=== PATIENT | female | born 1950 | race Asian ===

== ENCOUNTER 2019-04-02 07:51 | Inpatient (IN) | payer OTHER ==
[2019-04-02 08:04] VITALS: BMI 23.8
--- NOTE | 2019-04-02 08:16 | PDOC ---
History of Present Illness - General Chief Complaint: Chest Pain Stated Complaint: CHEST PAIN Time Seen by Provider: 04/02/19 08:11 History Source: Patient Exam Limitations: No Limitations - History of Present Illness Initial Comments: Pt is a 68 yo F, with PMH of HTN, HLD, and cardiac cath (non-ischemic, no stents ), who is presenting with intermittent chest pain at rest since yesterday. Pt states starting yesterday afternoon while cooking, she experienced pressure- like chest discomfort. The pain has reoccurred throughout the day and night, and is active on presentation. The pain lasts about 10-15 minutes, and is associated with diaphoresis, nausea, and L arm tingling. Pt states this is similar to the chest pain she had in the past. Pt did not take any NG at home or analgesics. Pt denies any recent fevers/chills, headache, vision changes, syncope, palpitations, SOB, vomiting, abdominal pain, urinary symptoms, diarrhea /constipation, or leg swelling. Allergies: aspirin (rash) PCP: Dr. Dorsey Cards: Dr. Garcia Social: Pt denies any cigarette, alcohol, or drug use. Pt denies any recent travel or sick contacts. Surgical: no relevant history. Family: no relevant history. 04/02/19 13:07 Past History - Travel Traveled outside of the country in the last 30 days: No Close contact w/someone who was outside of country & ill: No - Past Medical History Allergies/Adverse Reactions: Allergies Allergy/AdvReac Type Severity Reaction Status Date / Time aspirin Allergy Intermediate Rash Verified 04/02/19 09:41 Home Medications: Ambulatory Orders Amlodipine Besylate 5 mg PO DAILY 04/02/19 Atorvastatin Ca [Lipitor] 40 mg PO HS 04/02/19 Meclizine HCl 25 mg PO TID PRN 04/02/19 Metoprolol Succinate 50 mg PO BID 04/02/19 Sumatriptan Succinate 100 mg PO DAILY PRN 04/02/19 COPD: No HTN: Yes Hypercholesterolemia: Yes Other medical history: osteoperosis, migraines - Suicide/Smoking/Psychosocial Hx Smoking History: Never smoked Review of Systems - Review of Systems Able to Perform ROS?: Yes Is the patient limited Armenian proficient: No Constitutional: Yes: Weight Stable. No: Chills, Diaphoresis, Fever, Loss of Appetite, Malaise, Weakness HEENTM: No: Blurred Vision, Double Vision, Nose Congestion, Throat Pain, Throat Swelling, Difficulty Swallowing Respiratory: No: Cough, Orthopnea, Shortness of Breath Cardiac (ROS): Yes: Chest Pain, Other (diaphoresis). No: Edema, Irregular Heart Rate, Lightheadedness, Palpitations, Syncope, Chest Tightness ABD/GI: Yes: Nausea. No: Constipated, Diarrhea, Poor Appetite, Poor Fluid Intake, Rectal Bleeding, Vomiting, Abdominal cramping : No: Burning, Dysuria, Frequency, Pain, Urgency Musculoskeletal: No: Back Pain, Joint Pain, Muscle Pain, Muscle Weakness Integumentary: No: Rash Neurological: Yes: Paresthesia (tingling in L arm and fingers). No: Headache, Numbness, Pre-Existing Deficit, Weakness, Dizziness Psychiatric: No: Sleep Pattern Change, Change in Appetite Endocrine: No: Increased Urine, Change in Weight Hematologic/Lymphatic: No: Anemia, Blood Clots, Easy Bleeding, Easy Bruising All Other Systems: Reviewed and Negative *Physical Exam - Vital Signs Last Vital Signs Temp Pulse Resp BP Pulse Ox 97.5 F L 56 L 18 168/71 99 04/02/19 08:01 04/02/19 08:01 04/02/19 08:01 04/02/19 08:01 04/02/19 08:01 - Physical Exam Comments: HTN 160s/70, pt afebrile, HR 50s (pt baseline). Pt in NAD, lying comfortably on the bed. Normal body habitus. Pt alert and oriented x3. 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 No decreased sensation in upper extremities b/l. No midline spinal tenderness, step-offs, or crepitus. Head normocephalic, atraumatic. Eyes PERRLA, EOMI. Oropharynx without erythema or exudates, no LAD b/l. No nasal congestion, hearing intact. Clear heart sounds, S1/S2, no JVD, b/l pedal edema, or heart murmur. Clear lung sounds, no respiratory distress, wheezes, crackles, or accessory muscle use. No abdominal or CVA tenderness to palpation, no rebound, no guarding. Abdomen soft, non-distended, and with normoactive bowel sounds. Skin without jaundice or rash. 04/02/19 12:43 ED Treatment Course - LABORATORY CBC & Chemistry Diagram: 04/02/19 09:00 04/02/19 09:00 Medical Decision Making - Medical Decision Making Pt was seen at bedside, also will be seen by attending Dr. Hollis. Pt presenting with intermittent chest pain at rest since yesterday. Pt states starting yesterday afternoon while cooking, she experienced pressure-like chest discomfort. The pain has reoccurred throughout the day and night, and is active on presentation. The pain lasts about 10-15 minutes, and is associated with diaphoresis, nausea, and L arm tingling. Pt states this is similar to the chest pain she had in the past. Pt did not take any NG at home or analgesics. Pt denies any recent fevers/chills, headache, vision changes, syncope, palpitations , SOB, vomiting, abdominal pain, urinary symptoms, diarrhea/constipation, or leg swelling. CBC, CMP, cardiac profile, chest x-ray to evaluate for anemia vs ACS vs electrolyte imbalances. Story consistent with angina (unstable), as pt has no recent trauma to the chest, no cough, no new strenuous exercise. Provided 0.4 SL NG and 1 g ofirmev for improvement of chest discomfort. Will continue to reassess pt and monitor for symptomatic improvement. ECG: Sinus bradycardia, intervals WNL (HR 56, OK 174, QRS 82, QTc 397). No TWIs or significant ST segment changes. No prior ECG for comparison. Paging Dr. Dorsey for admission. Starting 75 mg PO plavix per cardiology recommendation (Dr. Maldonado). 04/02/19 10:02 Pt chest pain improved after NG and ofirmev. Pt lying comfortably and BP has remained stable. Pt was admitted to Dr. Dorsey. Consult placed for cardiology. 04/02/19 12:44 *DC/Admit/Observation/Transfer Diagnosis at time of Disposition: Angina at rest Chest pain Qualifiers: Chest pain type: unspecified Qualified Code(s): R07.9 - Chest pain, unspecified HLD (hyperlipidemia) Qualifiers: Hyperlipidemia type: unspecified Qualified Code(s): E78.5 - Hyperlipidemia, unspecified - Discharge Dispostion Condition at time of disposition: Stable Decision to Admit order: Yes - Referrals - Patient Instructions - Post Discharge Activity
[2019-04-02] MEDS ORDERED: ACETAMINOPHEN 1000 MG/100 ML VIAL (NON FORMULARY) IVPB ONE (08:26)
[2019-04-02] MEDS ORDERED: NITROGLYCERIN SUBLINGUAL 1/150 0.4 MG TAB SL ONE (08:48)
--- NOTE | 2019-04-02 08:52 | CON.CARD ---
Consult Consult Specialty:: Cardiology for dr. Bowen - History of Present Illness History of Present Illness: 68y F hx of htn, CAD (nonobstructive cath >10 yrs ago), HL presents with an episode of chest pain approximately 3 AM this morning that woke her up from sleep. The pain is described as pressure-like in nature in the substernal region associated with nausea and mild shortness of breath. Patient endorses prior history of this pain sometimeswhich radiates up to her left jaw. The pain persisted for several hours so as the patient came to the ER for evaluation. The patient's notes that this pain comes and goes intermittently is sometimes exertional but sometimes comes while at rest. She also notes thatsometimes she is able to ambulate up and down stairs without any associated chest pain. patient endorses mild headache without any vision changes, neuro complaints, neck pain, fevers, chills. - History Source History Provided By: Patient, Medical Record - Past Medical History Cardio/Vascular: Yes: CAD, HTN, Hyperlipdemia - Smoking History Smoking history: Never smoked Home Medications - Allergies Allergies/Adverse Reactions: Allergies Allergy/AdvReac Type Severity Reaction Status Date / Time aspirin Allergy Intermediate Rash Verified 04/02/19 09:41 Review of Systems - Review of Systems Constitutional: reports: No Symptoms Eyes: reports: No Symptoms HENT: reports: No Symptoms Neck: reports: No Symptoms Cardiovascular: reports: Chest Pain Respiratory: reports: No Symptoms Gastrointestinal: reports: No Symptoms Genitourinary: reports: No Symptoms Breasts: reports: No Symptoms Reported Musculoskeletal: reports: No Symptoms Integumentary: reports: No Symptoms Neurological: reports: No Symptoms Endocrine: reports: No Symptoms Hematology/Lymphatic: reports: No Symptoms Psychiatric: reports: No Symptoms Vital Signs: Vital Signs Temperature 97.5 F L 04/02/19 08:01 Pulse Rate 56 L 04/02/19 08:01 Respiratory Rate 18 04/02/19 08:01 Blood Pressure 168/71 04/02/19 08:01 O2 Sat by Pulse Oximetry (%) 99 04/02/19 08:01 Constitutional: Yes: Well Nourished, No Distress, Calm Eyes: Yes: WNL, Conjunctiva Clear, EOM Intact HENT: Yes: WNL, Atraumatic, Normocephalic Neck: Yes: WNL, Supple, Trachea Midline Respiratory: Yes: WNL, Regular, CTA Bilaterally Gastrointestinal: Yes: WNL, Normal Bowel Sounds Renal/: Yes: WNL Cardiovascular: Yes: WNL, Regular Rate and Rhythm Musculoskeletal: Yes: WNL Extremities: Yes: WNL Integumentary: Yes: WNL Neurological: Yes: WNL, Alert, Oriented ...Motor Strength: WNL Psychiatric: Yes: WNL, Alert, Oriented Imaging - Results Chest X-ray: Image Reviewed (no i/e) EKG: Image Reviewed (s turner) Assessment/Plan htn, CAD (nonobstructive cath >10 yrs ago), HL presents with an episode of chest pain approximately 3 AM this morning ekg and first tnis neg Plan admit to tele Plavix bb telemetry echo coverage for dr. Bowen
[2019-04-02 09:10] LABS: BASO % 0.8 % (0-2.0); EOS % 3.6 % (0-4.5); HEMATOCRIT 35.4 % (32.4-45.2); LYMPH % 54.5 % (8-40); MCH 27.4 pg (25.7-33.7); MEAN CELL VOLUME 80.5 fl (80-96); MONO % 8.4 % (3.8-10.2); NEUT % 32.7 % (42.8-82.8); WHITE BLOOD COUNT 5.4 K/mm3 (4.0-10.0)
[2019-04-02 09:23] LABS: PLATELET COUNT 231 K/MM3 (134-434)
[2019-04-02 09:29] LABS: INR 0.92 (0.83-1.09); PROTHROMBIN TIME (PATIENT) 10.8 SEC (9.7-13.0)
[2019-04-02 09:42] LABS: ALBUMIN 3.8 g/dl (3.4-5.0); ALK PHOS 127 U/L (45-117); ANION GAP 6 MMOL/L (8-16); BILIRUBIN,TOTAL 0.2 mg/dL (0.2-1); CALCIUM 8.8 mg/dL (8.5-10.1); CHLORIDE 109 mmol/L (98-107); CO2 24 mmol/L (21-32); CREATININE 0.7 mg/dL (0.55-1.3); GLUCOSE,RANDOM 98 mg/dL (74-106); MAGNESIUM 2.4 mg/dL (1.8-2.4); POTASSIUM 4.5 mmol/L (3.5-5.1); SGOT/AST 12 U/L (15-37); SGPT/ALT 25 U/L (13-61); SODIUM 138 mmol/L (136-145); TOT PROT 6.8 g/dl (6.4-8.2)
[2019-04-02] MEDS ORDERED: ACETAMINOPHEN INJECTION 100 ML IVPB ONE (09:44)
[2019-04-02] MEDS ORDERED: CLOPIDOGREL BISULFATE 75 MG TABLET (FP) PO ONE (09:57)
--- NOTE | 2019-04-02 10:05 | PDOC ---
Attending Attestation - Resident Resident Name: Larissa Pruett - ED Attending Attestation I have performed the following: I have examined & evaluated the patient, The case was reviewed & discussed with the resident, I agree w/resident's findings & plan, Exceptions are as noted - HPI HPI: 04/02/19 10:24 68y F hx of htn, CAD (nonobstructive cath >10 yrs ago), HL presents with an episode of chest pain approximately 3 AM this morning that woke her up from sleep. The pain is described as pressure-like in nature in the substernal region associated with nausea and mild shortness of breath. Patient endorses prior history of this pain sometimeswhich radiates up to her left jaw. The pain persisted for several hours so as the patient came to the ER for evaluation. The patient's notes that this pain comes and goes intermittently is sometimes exertional but sometimes comes while at rest. She also notes thatsometimes she is able to ambulate up and down stairs without any associated chest pain. patient endorses mild headache without any vision changes, neuro complaints, neck pain, fevers, chills. The patient denies any abdominal pain, back pain, numbness, tingling, weakness, ough, hemoptysis, leg swelling. GENERAL: The patient is awake, alert, and fully oriented, Nontoxic - in no acute distress. HEAD: Normocephalic, atraumatic. EYES: extraocular movements intact, sclera anicteric, conjunctiva clear. ENT: Normal voice, Moist mucous membranes. NECK: Normal range of motion, supple LUNGS: Breath sounds equal, clear to auscultation bilaterally. No wheezes, no rhonchi, no rales. HEART: Regular rate and rhythm, normal S1 and S2 without murmur, rub or gallop. ABDOMEN: Soft, nontender, No guarding, no rebound. No CVA tenderness EXTREMITIES: Normal range of motion, no edema. NEUROLOGICAL: No facial assymetry, Normal speech, PSYCH: Normal mood, normal affect. 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 There is normal sinus rhythm with a rate of 56 The axis is normal. The intervals are normal. There is normal R wave progression There are no ST or T wave abnormalities. Impression: sinus bradycardia
--- NOTE | 2019-04-02 11:36 | HP ---
Admitting History and Physical - Primary Care Physician PCP: Lily Dorsey - Admission Chief Complaint: Chest pain History of Present Illness: 68 yrs old F with H/o HTN, non obstructive CAd s/p Cath yrs ago F/u with Dr edwards, HTN, hypercholasterolemia, present with left sided chest pain that is constant radiates to Neck and Interscapuar area with local tenderness started at rest mid night came to Ed for evaluation, no associated SOB, perspiration, fever cough or trauma in the ED patient was brdaycardic otherwise stable all labs including Initial troponin and EKG are unremarkable evaluted by Cardiolgy admitted for further evaluation. History Source: Patient - Past Medical History Cardiovascular: Yes: CAD, HTN, Hyperlipdemia - Smoking History Smoking history: Never smoked Home Medications - Allergies Allergies/Adverse Reactions: Allergies Allergy/AdvReac Type Severity Reaction Status Date / Time aspirin Allergy Intermediate Rash Verified 04/02/19 09:41 - Home Medications Home Medications: Ambulatory Orders Amlodipine Besylate 5 mg PO DAILY 04/02/19 Atorvastatin Ca [Lipitor] 40 mg PO HS 04/02/19 Meclizine HCl 25 mg PO TID PRN 04/02/19 Metoprolol Succinate 50 mg PO BID 04/02/19 Sumatriptan Succinate 100 mg PO DAILY PRN 04/02/19 Family Disease History - Family Disease History Family History: Unremarkable Review of Systems - Review of Systems Constitutional: denies: Chills, Diaphoresis, Fever, Lethargy Eyes: denies: Blind Spots, Blurred Vision, Double Vision HENT: denies: Difficult Swallowing, Ear Discharge, Ear Pain, Epistaxis Neck: reports: Pain on Movement. denies: Decreased ROM Cardiovascular: reports: Chest Pain. denies: Edema, Palpitations, Shortness of Breath Respiratory: denies: Cough, Exercise Intolerance, Hemoptysis, Orthopnea Gastrointestinal: denies: Abdominal Pain, Bloating, Constipation, Diarrhea Genitourinary: reports: Burning, Dysuria, Flank Pain Musculoskeletal: reports: Decreased ROM, Muscle Cramps. denies: Back Pain, Crepitus Integumentary: denies: Blister Psychiatric: denies: Altered Sleep Pattern, Anxiety, Depression Physical Examination Vital Signs: Vital Signs Temperature 97.5 F L 04/02/19 08:01 Pulse Rate 54 L 04/02/19 08:45 Respiratory Rate 14 04/02/19 08:45 Blood Pressure 150/75 04/02/19 08:45 O2 Sat by Pulse Oximetry (%) 100 04/02/19 08:45 Elderly F comfortavble c/o Left sided reproducible pain HEENT: Mm moist, no anemia, PERRLA EOMI NECK: No JVd No Bruit CHEST: Tenderness ant aspect and medial border of Left sided scapula, CTA B/L CVS: S1S2 R no m/g/r ABD: Obese, non tender BS + EXT: Trace edema feet, no calf tenderness, pulses + [employer]IST; AOX3 non focal Labs: CBC, BMP 04/02/19 09:00 04/02/19 09:00 CBC,CMP WBC 5.4 K/mm3 (4.0-10.0) 04/02/19 09:00 RBC 4.40 M/mm3 (3.60-5.2) 04/02/19 09:00 Hgb 12.0 GM/dL (10.7-15.3) 04/02/19 09:00 Hct 35.4 % (32.4-45.2) 04/02/19 09:00 MCV 80.5 fl (80-96) 04/02/19 09:00 MCH 27.4 pg (25.7-33.7) 04/02/19 09:00 MCHC 34.0 g/dl (32.0-36.0) 04/02/19 09:00 RDW 15.0 % (11.6-15.6) 04/02/19 09:00 Plt Count 231 K/MM3 (134-434) 04/02/19 09:00 MPV 7.0 fl (7.5-11.1) L 04/02/19 09:00 Absolute Neuts (auto) 1.8 K/mm3 (1.5-8.0) 04/02/19 09:00 Neutrophils % 32.7 % (42.8-82.8) L 04/02/19 09:00 Lymphocytes % 54.5 % (8-40) H 04/02/19 09:00 Monocytes % 8.4 % (3.8-10.2) 04/02/19 09:00 Eosinophils % 3.6 % (0-4.5) 04/02/19 09:00 Basophils % 0.8 % (0-2.0) 04/02/19 09:00 Nucleated RBC % 0 % (0-0) 04/02/19 09:00 Sodium 138 mmol/L (136-145) 04/02/19 09:00 Potassium 4.5 mmol/L (3.5-5.1) 04/02/19 09:00 Chloride 109 mmol/L (98-107) H 04/02/19 09:00 Carbon Dioxide 24 mmol/L (21-32) 04/02/19 09:00 Anion Gap 6 MMOL/L (8-16) L 04/02/19 09:00 BUN 16.0 mg/dL (7-18) 04/02/19 09:00 Creatinine 0.7 mg/dL (0.55-1.3) 04/02/19 09:00 Est GFR (CKD-EPI)AfAm 102.46 04/02/19 09:00 Est GFR (CKD-EPI)NonAf 88.40 04/02/19 09:00 Random Glucose 98 mg/dL (74-106) 04/02/19 09:00 Calcium 8.8 mg/dL (8.5-10.1) 04/02/19 09:00 Magnesium 2.4 mg/dL (1.8-2.4) 04/02/19 09:00 Total Bilirubin 0.2 mg/dL (0.2-1) 04/02/19 09:00 AST 12 U/L (15-37) L 04/02/19 09:00 ALT 25 U/L (13-61) 04/02/19 09:00 Alkaline Phosphatase 127 U/L (45-117) H 04/02/19 09:00 Creatine Kinase 89 U/L (26-192) 04/02/19 19:50 Troponin I < 0.02 ng/ml (0.00-0.05) 04/02/19 19:50 Total Protein 6.8 g/dl (6.4-8.2) 04/02/19 09:00 Albumin 3.8 g/dl (3.4-5.0) 04/02/19 09:00 Triglycerides 70 mg/dL (0-150) 04/02/19 09:00 Cholesterol 178 mg/dL (50-200) 04/02/19 09:00 Total LDL Cholesterol 88 mg/dL (5-100) 04/02/19 09:00 HDL Cholesterol 83 mg/dL (40-60) H 04/02/19 09:00 Imaging - Results Chest X-ray: Report Reviewed (Normal) EKG: Report Reviewed ([address] T chnages) Problem List - Problems (1) Chest pain Assessment/Plan: h/o non obstructive CAd admitted with chest pain R/o ACs evaluated by cardiology consult recommended serial CE and ECHO, B Blovkers, Plavix and Statin. Code(s): R07.9 - CHEST PAIN, UNSPECIFIED Qualifiers: Chest pain type: unspecified Qualified Code(s): R07.9 - Chest pain, unspecified (2) HTN (hypertension) Assessment/Plan: Well controlled Cont Metoprolol and Amlodine. Code(s): I10 - ESSENTIAL (PRIMARY) HYPERTENSION (3) HLD (hyperlipidemia) Assessment/Plan: LDL at target cont TSH rersume Lipitor 40 mg bed time Code(s): E78.5 - HYPERLIPIDEMIA, UNSPECIFIED Qualifiers: Hyperlipidemia type: unspecified Qualified Code(s): E78.5 - Hyperlipidemia , unspecified
--- NOTE | 2019-04-02 11:55 | EKG ---
Test Reason : Blood Pressure : / mmHG Vent. Rate : 056 BPM Atrial Rate : 056 BPM P-R Int : 174 ms QRS Dur : 082 ms QT Int : 412 ms P-R-T Axes : 050 014 045 degrees QTc Int : 397 ms SINUS BRADYCARDIA OTHERWISE NORMAL ECG WHEN COMPARED WITH ECG OF 16-NOV-2001 15:31, NO SIGNIFICANT CHANGE WAS FOUND Confirmed by CHARLINE PGUA MD ([id number]) on 04/02/2019 11:54:36 AM Referred By: Confirmed By:CHARLINE PUGA MD
[2019-04-02 12:03] LABS: CHOLESTEROL 178 mg/dL (50-200); HDL CHOLESTEROL 83 mg/dL (40-60); TRIGLYCERIDES 70 mg/dL (0-150)
[2019-04-02] MEDS ORDERED: CLOPIDOGREL BISULFATE 75 MG TABLET (FP) ONE (12:26)
--- NOTE | 2019-04-02 15:28 | EKG ---
Test Reason : Blood Pressure : / mmHG Vent. Rate : 054 BPM Atrial Rate : 054 BPM P-R Int : 178 ms QRS Dur : 080 ms QT Int : 430 ms P-R-T Axes : 045 016 035 degrees QTc Int : 407 ms SINUS BRADYCARDIA OTHERWISE NORMAL ECG WHEN COMPARED WITH ECG OF 02-APR-2019 07:58, NO SIGNIFICANT CHANGE WAS FOUND Confirmed by CHARLINE PUGA MD ([id number]) on 04/02/2019 3:27:47 PM Referred By: Confirmed By:CHARLINE PUGA MD
[2019-04-02] MEDS: ACETAMINOPHEN 325 MG TABLET (FP) PO PRN (19:41)
[2019-04-02] MEDS ORDERED: ATORVASTATIN CA 40 MG TABLET (FP) ONE (21:18)
[2019-04-02] MEDS ORDERED: ATORVASTATIN CA 40 MG TABLET (FP) PO SCH (22:00)
[2019-04-03 04:33] VITALS: TEMP 97.6
[2019-04-03] MEDS ORDERED: ACETAMINOPHEN 325 MG TABLET (FP) ONE (05:48)
[2019-04-03] MEDS: ACETAMINOPHEN 325 MG TABLET (FP) PO PRN (05:50)
[2019-04-03 07:23] LABS: BASO % 0.6 % (0-2.0); EOS % 3.3 % (0-4.5); HEMATOCRIT 33.8 % (32.4-45.2); HEMOGLOBIN 11.4 GM/dL (10.7-15.3); LYMPH % 42.7 % (8-40); MCH 27.3 pg (25.7-33.7); MCHC 33.7 g/dl (32.0-36.0); MEAN CELL VOLUME 81.1 fl (80-96); MEAN PLT VOLUME 7.1 fl (7.5-11.1); MONO % 8.2 % (3.8-10.2); NEUT % 45.2 % (42.8-82.8); PLATELET COUNT 233 K/MM3 (134-434); RBC 4.17 M/mm3 (3.60-5.2); RDW 14.6 % (11.6-15.6)
[2019-04-03 07:34] LABS: INR 1.03 (0.83-1.09); PROTHROMBIN TIME (PATIENT) 12.1 SEC (9.7-13.0)
[2019-04-03 07:47] LABS: BLOOD UREA NITROGEN 14.1 mg/dL (7-18); CALCIUM 8.5 mg/dL (8.5-10.1); CREATININE 0.7 mg/dL (0.55-1.3); POTASSIUM 4.3 mmol/L (3.5-5.1)
--- NOTE | 2019-04-03 08:42 | PN ---
Progress Note, Physician Chief Complaint: No pain this AM History of Present Illness: 68 yr old female known hypertensive came to ER with chest pain Evaluated by cardiology Dr Velez,EKG and troponins are Neg for Ac GA Scheduled for echo this AM - Current Medication List Current Medications: Active Medications Acetaminophen (Tylenol -) 650 mg PO Q6H PRN PRN Reason: PAIN Last Admin: 04/03/19 05:50 Dose: 650 mg Amlodipine Besylate (Norvasc -) 5 mg PO DAILY [facility] Atorvastatin Calcium (Lipitor -) 40 mg PO HS [facility] Last Admin: 04/02/19 21:35 Dose: 40 mg Metoprolol Succinate (Toprol Xl -) 50 mg PO BID [facility] Last Admin: 04/02/19 21:35 Dose: 50 mg - Objective Vital Signs: Vital Signs Temperature 97.6 F 04/03/19 04:32 Pulse Rate 54 L 04/03/19 06:00 Respiratory Rate 18 04/03/19 06:00 Blood Pressure 148/69 04/03/19 06:00 O2 Sat by Pulse Oximetry (%) 99 04/03/19 06:00 Constitutional: Yes: No Distress Eyes: Yes: WNL HENT: Yes: WNL Neck: Yes: WNL Cardiovascular: Yes: WNL Respiratory: Yes: WNL Gastrointestinal: Yes: WNL ...Rectal Exam: Yes: Deferred Genitourinary: Yes: WNL Breast(s): Yes: WNL Musculoskeletal: Yes: WNL Edema: No Peripheral Pulses WNL: Yes Neurological: Yes: Alert ...Motor Strength: WNL Psychiatric: Yes: Alert Labs: CBC, BMP 04/03/19 06:30 04/03/19 06:30 INR, PTT INR 1.03 (0.83-1.09) 04/03/19 06:30 - ....Imaging Ultrasound: Pending
[2019-04-03] MEDS ORDERED: SUMAtriptan SUCCINATE 50 MG TABLET PO ONE (09:00)
[2019-04-03] MEDS ORDERED: amLODIPine BESYLATE 5 MG TABLET (FP) PO SCH (10:00)
--- NOTE | 2019-04-03 10:21 | ECHO ---
Name: FREDDIE, JOSE Exam:Adult Echocardiogram Study Date: 04/03/2019 09:33 AM Age: 68 yrs Reason For Study: SYNCOPE Height: 62 in Weight: 130 lb BSA: 1.6 m2 MMode/2D Measurements & Calculations IVSd: 1.1 cm ACS: 1.3 cm LVIDd: 3.4 cm LVIDs: 2.3 cm LVPWd: 1.2 cm EDV(Teich): 48.8 ml LVOT diam: 1.4 cm ESV(Teich): 18.6 ml RV S Agustin: 11.5 cm/sec Doppler Measurements & Calculations MV E max agustin: 80.9 cm/sec Ao V2 max: 140.1 cm/sec MV A max agustin: 112.4 cm/sec Ao max P.8 mmHg MV E/A: 0.72 Ao V2 mean: 90.9 cm/sec Ao mean P.9 mmHg Ao V2 VTI: 33.6 cm RUT(I,D): 1.0 cm2 RUT(V,D): 0.93 cm2 LV V1 max P.8 mmHg SV(LVOT): 34.8 ml LV V1 mean P.9 mmHg LV V1 max: 83.3 cm/sec LV V1 mean: 65.7 cm/sec LV V1 VTI: 22.2 cm TR max agustin: 278.3 cm/sec PI end-d agustin: 86.9 cm/sec TR max P.2 mmHg Med Peak E' Agustin: 7.7 cm/sec Med E/e': 10.5 Lat Peak E' Agustin: 9.0 cm/sec Lat E/e': 9.0 Procedure A complete two-dimensional transthoracic echocardiogram was performed (2D, M-mode, Doppler and color flow Doppler). Technically limited study. Left Ventricle The left ventricle is normal in size. Left ventricular systolic function is normal. Ejection Fraction = 60- 65%. No regional wall motion abnormalities noted. Right Ventricle The right ventricle is normal size. The right ventricular systolic function is normal. RV systolic TD I is 11 cm/s. Atria The left atrial size is normal. Right atrial size is normal. Mitral Valve The mitral valve is normal in structure and function. There is no mitral regurgitation noted. Tricuspid Valve The tricuspid valve is normal in structure and function. There is mild tricuspid regurgitation. Pulmo nary artery systolic pressure is at least 39 mmHg if RA pressure is assumed 3 mmHg (IVC was not adequately visualized to assess accurate RA pressure). Aortic Valve There is mild aortic sclerosis.;. No aortic regurgitation is present. Pulmonic Valve The pulmonic valve is not well visualized. Mild pulmonic valvular regurgitation. Great Vessels The aortic root is normal size. Pericardium/Pleura There is no pericardial effusion. Interpretation Summary Technically limited study The left ventricle is normal in size. Left ventricular systolic function is normal. No regional wall motion abnormalities noted. Ejection Fraction = 60-65%. The right ventricular systolic function is normal. The left atrial size is normal. Right atrial size is normal. There is mild tricuspid regurgitation. Pulmonary artery systolic pressure is at least 39 mmHg if RA pressure is assumed 3 mmHg (IVC was not adequately visualized to assess accurate RA pressure) There is mild aortic sclerosis. Mild pulmonic valvular regurgitation. There is no pericardial effusion. Previous study is not available for comparison Dar Christensen MD 04/03/2019 10:20 AM
--- NOTE | 2019-04-03 10:25 | PN ---
Progress Note, Physician History of Present Illness: No further sharp, atypical mom-exertional chest pain, denies dyspnea. - Current Medication List Current Medications: Active Medications Acetaminophen (Tylenol -) 650 mg PO Q6H PRN PRN Reason: PAIN Last Admin: 04/03/19 05:50 Dose: 650 mg Amlodipine Besylate (Norvasc -) 5 mg PO DAILY [facility] Atorvastatin Calcium (Lipitor -) 40 mg PO HS [facility] Last Admin: 04/02/19 21:35 Dose: 40 mg Metoprolol Succinate (Toprol Xl -) 50 mg PO BID [facility] Last Admin: 04/02/19 21:35 Dose: 50 mg - Objective Vital Signs: Vital Signs Temperature 97.6 F 04/03/19 04:32 Pulse Rate 54 L 04/03/19 06:00 Respiratory Rate 18 04/03/19 06:00 Blood Pressure 148/69 04/03/19 06:00 O2 Sat by Pulse Oximetry (%) 99 04/03/19 06:00 Constitutional: Yes: No Distress, Calm, Thin Neck: Yes: Supple Cardiovascular: Yes: Regular Rate and Rhythm Respiratory: Yes: Regular, CTA Bilaterally Gastrointestinal: Yes: Normal Bowel Sounds, Soft Edema: No Labs: CBC, BMP 04/03/19 06:30 04/03/19 06:30 INR, PTT INR 1.03 (0.83-1.09) 04/03/19 06:30 Problem List - Problems (1) Atypical chest pain Code(s): R07.89 - OTHER CHEST PAIN (2) Nonobstructive atherosclerosis of coronary artery Code(s): I25.10 - ATHSCL HEART DISEASE OF [place] CORONARY ARTERY W/O ANG PCTRS (3) HLD (hyperlipidemia) Code(s): E78.5 - HYPERLIPIDEMIA, UNSPECIFIED Qualifiers: Hyperlipidemia type: pure hypercholesterolemia Qualified Code(s): E78.00 - Pure hypercholesterolemia, unspecified; E78.0 - Pure hypercholesterolemia (4) HTN (hypertension) Code(s): I10 - ESSENTIAL (PRIMARY) HYPERTENSION Qualifiers: Hypertension type: essential hypertension Qualified Code(s): I10 - Essential (primary) hypertension Assessment/Plan 1. Atypical chest pain 2. Non-obstructive CAD 3. HTN 4. Hyperlipidemia 5. ASA allergy->Hives P:1. Ruled out for [place] 2. F/u echo results 3. Continue Norvasc 5 qd, Lipitor 40 qd, Toprol XL 50 bid 4. D/c planning with f/u with Dr. Mathew 05/03/2019 5. Thank you for consultative opportunity
[2019-04-03 13:15] VITALS: BP 150/51; PULSE 59
== END 2019-04-03 12:35 | disposition home or self-care (01) | DRG 313 ==
LOC: JER 07:51 → JERBED 09:57
PROVIDERS: ADMIT Internal Medicine; ATTEND Internal Medicine
DX: R07.89 Other chest pain (principal); I25.10 Atherosclerotic heart disease of native coronary artery without angina pectoris; E78.5 Hyperlipidemia, unspecified; I10 Essential (primary) hypertension; Z98.61 Coronary angioplasty status; M81.0 Age-related osteoporosis without current pathological fracture; R00.1 Bradycardia, unspecified; Z88.6 Allergy status to analgesic agent
CPT/HCPCS: 36415; 71045-TC-FY; 80048; 80053; 80061; 82550; 83036; 83721; 83735; 84484; 85025; 85610; 85730; 86850; 86900; 86901; 93005; 93010; 93306-TC; 99285-25; J0131

== ENCOUNTER 2024-04-03 04:16 | Day surgery (SDC) | payer OTHER ==
[2024-03-29 13:10] VITALS: BMI 26.9
[2024-04-03 12:18] VITALS: PULSE 55
[2024-04-03 12:19] VITALS: BP 122/52; RESP 16; TEMP 97.9
== END 2024-04-03 12:50 | disposition home or self-care (01) ==
LOC: JASU-ENDO 04:16
PROVIDERS: ATTEND Internal Medicine Gastroenterology
PROC: 0DJD8ZZ Inspection of Lower Intestinal Tract, Via Natural or Artificial Opening Endoscopic (ICD-10-PCS; principal; 2024-04-03 11:00)
DX: Z12.11 Encounter for screening for malignant neoplasm of colon (principal); K57.30 Diverticulosis of large intestine without perforation or abscess without bleeding; K64.8 Other hemorrhoids; Z86.010 Personal history of colon polyps